=== PATIENT | female | born 2000 | race Caucasian/White ===

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

== ENCOUNTER → 2020-03-09 | Outpatient (CLI) | payer MEDICAID ==
[2020-03-09 15:42] VITALS: BP 109/73; PULSE 80; RESP 16; TEMP 98.8
--- NOTE | 2020-03-09 17:23 | P.HPOB ---
History of Present Illness H&P Date: 03/09/20 Chief Complaint: The patient is here for her routine gynecologic exam and control pill This is a 19-year-old G0 with an LMP of 03/02/2020. The patient has been on Tri-Sprintec for control and regulation of her periods. She had previously had some menstrual irregularity with crampy painful periods. Her menstrual periods are much more regular and less painful with oral contraception. She is currently not seeing anybody at this time. She would like to continue on oral contraception. Review of Systems The patient has gained 8 pounds over the last year. She denies respiratory, cardiac, or G.I. problems. 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 History of Any Multi-Drug Resistant Organisms: None Reported Past Surgical History: No Surgical Hx Reported Past Psychological History: No Psychological Hx Reported Smoking Status: Never smoker Past Alcohol Use History: Occasional (About 6 per month) Past Drug Use History: Marijuana (About 6 times per month) Additional History: The patient is single and is not seeing anybody at this time. She attends college at [employer] [place]. - Past Family History Father Family Medical History: AFIB Mother Family Medical History: Liver Disease Medications and Allergies Home Medications Medication Instructions Recorded Confirmed Type Norgestimate-Ethinyl Estradiol 1 each PO DAILY #84 tablet 03/09/20 Rx [Tri-Sprintec Tablet] Allergies Allergy/AdvReac Type Severity Reaction Status Date / Time No Known Allergies Allergy Unverified 03/09/20 15:36 Exam Vital Signs Temp Pulse Resp BP Pulse Ox 03/09/20 15:37 98.8 F 80 16 109/73 98 Intake and Output 03/09/20 03/09/20 03/09/20 06:59 14:59 22:59 Other: Weight 53.07 kg Height 5 feet 0 inches, weight 117 pounds, BMI 22.8. This is a well-developed well-nourished white female who is alert and oriented times 3 in no acute distress. HEENT: Within normal limits. NECK: Supple without mass or thyromegaly. CHEST AND LUNGS: Clear to auscultation. HEART: Regular rate and rhythm. BREASTS: Are without mass or discharge. AXILLARY EXAM: Negative for adenopathy. BACK: Negative for CVA tenderness. ABDOMEN: Soft, nontender, without palpable masses. PELVIC EXAM: Normal external genitalia. Cervix and vagina appear normal. There is no unusual discharge. There is no cervical motion tenderness. There is no evidence of prolapse. The uterus is midposition, nongravid size and nontender. There are no palpable adnexal masses or tenderness. RECTAL EXAM: Deferred EXTREMITIES: Nontender. IMPRESSION: 1. 19-year-old female with normal gynecologic exam. 2. History of mild dysmenorrhea and menstrual irregularity improved with oral contraception. PLAN: 1. Pap smear is deferred until age 21. 2. Self breast awareness was discussed with the patient. 3. STD prevention was discussed with the patient. I have stressed the importance of limiting sexual partners and I have recommended using condoms if she is sexually active. 4. I have recommended that she look into the HPV vaccination which may help to decrease the risk for cervical cancer and genital warts. She states she will consider this and she can have this done at the health department if she chooses to proceed with this. 5. Continue Tri-Sprintec oral contraception. The electronic prescription for the upcoming year was sent to [facility]. 6. GC and chlamydia screening was obtained from the cervix. 7. She was advised to return in one year for her annual well woman exam.
--- NOTE | 2020-03-16 17:53 | P.PN ---
Progress Note - Text Progress Note Date: 03/16/20 OUTPATIENT FOLLOW-UP NOTE TEST(S)/RESULTS: GC and chlamydia testing were both negative on 03/09/2020. METHOD OF NOTIFICATION: The patient was notified by phone. PATIENT COMMENTS: She states she still has not picked up her control pills. DIAGNOSIS: Negative GC and chlamydia screening. DISCUSSION: She was instructed to wait until the onset of her next normal menstrual period before starting the next pack of control pills since she is now several days late for starting the new pack of pills. She was instructed to use condoms if she is sexually active in the first pack of pills. PLAN: She was advised to return in one year for her annual well woman exam.
== END | disposition home or self-care (01) ==
LOC: WWCWWP 15:20
PROVIDERS: ATTEND Obstetrics & Gynecology
DX: Z53.9 Procedure and treatment not carried out, unspecified reason (principal)